=== PATIENT | male | born 1970 | race Caucasian/White ===

== ENCOUNTER 2023-07-21 10:08 | Outpatient (CLI) | payer MEDICAID | END 2023-07-21 23:59 | disposition home or self-care (01) | LOC: RAD 10:08 | PROVIDERS: ATTEND Nurse Practitioner | DX: M79.602 Pain in left arm (principal); M84.48XA Pathological fracture, other site, initial encounter for fracture; V19.9XXA Pedal cyclist (driver) (passenger) injured in unspecified traffic accident, initial encounter | CPT/HCPCS: 73030; 73060; 73080 ==